=== PATIENT | female | born 1965 | race Caucasian/White ===

== ENCOUNTER 2020-02-11 09:00 | Emergency (ER) | payer BC, SELFPAY ==
[2020-02-11 09:31] VITALS: BP 137/85; PULSE 89; RESP 20; TEMP 36.8; O2SAT 95; BMI 28.3
--- NOTE | 2020-02-11 09:46 | HMH.EDUTC ---
[facility] [place] Clinical Impression: Exposure to COVID-19 virus Disposition: Home, Self-Care Condition on Discharge: Good Instructions: Preventing the Spread of Coronavirus Discharge Instructions Additional Instructions: Drink plenty of fluids. Take tylenol for pain or fever. Follow up with your regular doctor. GO TO THE ER FOR ANY WORSENING SYMPTOMS FOLLOW THE DIRECTIONS ON THE COVID-19 HAND OUT THAT WE GAVE YOU REGARDING SELF-ISOLATION UNTIL YOU KNOW YOUR COVID-19 RESULTS Referrals: Gilma Schmitz [Primary Care Provider] - Time of Disposition: 09:48 Medical Decision Making - Medical Records Medical records reviewed: No: I reviewed the patient's medical records. - Bridger Inquiry Pt receiving controlled substance: No Vital Signs: 02/11/20 09:31 02/11/20 10:00 Temperature 98.2 F 98.2 F Temperature Source Oral Oral Pulse Rate 89 Pulse Rate [Radial] 89 Respiratory Rate 20 20 Blood Pressure 137/85 Blood Pressure [Right Arm] 137/85 Blood Pressure Mean [Right Arm] 102 Blood Pressure Source Automatic Cuff Blood Pressure Source [Right Arm] Automatic Cuff Blood Pressure Position Sitting Blood Pressure Position [Right Arm] Sitting 02 Sat by Pulse Oximetry 95 Oxygen Delivery Method Room Air Room Air Orders (Tests/Meds): ORDERS Category Date Time Status Full Resp Panel w/COVID ([facility]) Routine Lab 02/11/20 09:20 [place] [facility] [place] - General Stated complaint: wants covid test Time Seen by Provider: 02/11/20 09:35 Mode of Arrival: Ambulatory Source of Information: Patient Limitations: No Limitations Description of Symptoms (Recalled from Triage Doc. by RN): covid exposure HEENT Symptoms (Recalled from RN notes): No Resp Symptoms (Recalled from RN notes): No Skin Symptoms (Recalled from RN notes): No MS Symptoms (Recalled from RN notes): No Functional Status (Recalled from RN notes): wnl - History of Present Illness Provider Complaint: Her was exposed to covid at his job around 1 week ago. Neither she nor her have had any symptoms. - Related Data Allergies Allergy/AdvReac Type Severity Reaction Status Date / Time codeine Allergy Verified 02/11/20 09:39 - Worker's Comp Is this a Worker's Comp case?: No [facility] History - Hepatitis A Screen Drug use history?: No High risk sexual behaviors?: No History of sexually transmitted infection?: No Currently employed?: No Childcare worker?: No Do you have indoor plumbing?: Yes Do you have electricity?: Yes Attestation statement:: This patient has been screened for Hepatitis A risk factors. I have reviewed the patient's past medical history: Yes - Social History Alcohol Intake: never Occupational Status: employed ROS Obtained: Yes All systems reviewed & no additional complaints - Constitutional Constitutional: Reports system reviewed and no additional complaints, except as docu - Eyes Eyes: Reports system reviewed and no additional complaints, except as docu - ENT Ears, Nose, Mouth, and Throat: Reports system reviewed and no additional complaints, except as docu - Cardiovascular Cardiovascular: Reports system reviewed and no additional complaints, except as docu - Respiratory Respiratory: Yes system reviewed and no additional complaints, except as docu - Gastrointestinal Gastrointestingal: Reports: system reviewed and no additional complaints, except as docu Physical Exam - General General appearance: alert, in no apparent distress - Head Head exam: atraumatic, normocephalic, normal inspection - Eye Eye exam: Present: normal appearance, PERRL, EOMI - ENT ENT exam: Present: normal exam, normal oropharynx, mucous membranes moist, TM's normal bilaterally, normal external ear exam - Neck Neck exam: Present: normal inspection, full ROM, trachea midline. Absent: meningismus, lymphadenopathy - Chest Chest inspection: Present: normal inspection, symmetric chest wall
[2020-02-11 10:00] VITALS: BP 137/85; PULSE 89; RESP 20; TEMP 36.8; O2SAT 95
[2020-02-12 14:09] LABS: Covid-19 Nasal PCR Sendout Lex NOT DETECTED
== END 2020-02-11 10:01 | disposition home or self-care (01) ==
PROVIDERS: Emergency Provider Nurse Practitioner Family; PCP Internal Medicine
DX: Z20.828 Contact with and (suspected) exposure to other viral communicable diseases (principal)
CPT/HCPCS: 99201; U0004

== ENCOUNTER 2023-09-27 05:32 | Emergency (ER) | payer BC, SELFPAY ==
[2023-09-27 05:34] VITALS: BP 152/86; PULSE 88; RESP 18; TEMP 36.8; O2SAT 98; BMI 31.1
--- NOTE | 2023-09-27 05:36 | ED_ITS ---
Discharge Plan Disposition Patient Disposition: Home, Self-Care Prescriptions Prescriptions: New ondansetron HCl 4 mg tablet 4 mg PO Q8H PRN (Reason: nausea and vomiting) 5 Days Qty: 30 0RF lidocaine 5 % adhesive patch,medicated 1 patch topical DAILY PRN (Reason: pain) Qty: 30 0RF Rx Instructions: leave on most painful area for up to 12 hrs cyclobenzaprine 5 mg tablet 10 mg PO TID PRN (Reason: muscle spasm) Qty: 30 0RF Clinical Impressions Clinical Impression: Low back pain Discharge ED Provider: Aayush Long General Adult HPI General Chief complaint: Back Pain/Injury Stated complaint: back pain, naussea Time Seen by Provider: 09/27/23 05:36 History of Present Illness HPI narrative: 58-year-old female with no reported past medical history presents with low back pain. She reports that she was doing more physical activity and then she had onset of back pain on Saturday. She has been doing hot and cold packs at home as well as Tylenol and ibuprofen but she has not had significant improvement. Pain sometimes radiates down the back of the legs. She has had this happen before and resolved with muscle relaxers. She reports that she was nauseous this morning secondary to pain and that is what prompted her to present to the ER today. She denies any numbness in the perineal area, denies any urinary or bowel incontinence or retention. Denies any burning with urination or history of kidney stones. No recent fever or illness. She denies focal weakness in the lower extremities. She reports no history of IV drug use, no history of cancer or bone disease. Related Data Previous Rx's Medication Instructions Recorded cyclobenzaprine 5 mg tablet 10 mg (2 x 5 mg) PO TID PRN muscle 09/27/23 spasm #30 tabs lidocaine 5 % topical patch 1 patch topical DAILY PRN pain #30 09/27/23 ea ondansetron HCl 4 mg tablet 4 mg PO Q8H PRN nausea and 09/27/23 vomiting 5 days #30 tabs Allergies Allergy/AdvReac Type Severity Reaction Status Date / Time codeine Allergy Verified 02/11/20 09:39 [facility] Disclaimer: The information contained in this section may have been updated after the patient was seen, as this information can be updated by other users. Social History Smoking Status: Never smoker alcohol intake: never current occupational status: employed Travel in the last 8 weeks: None ROS Obtained: Yes All systems reviewed & no additional complaints except as documented Physical Exam General General appearance: alert and in no apparent distress Head Head exam: atraumatic and normocephalic Eye Eye exam: Present normal appearance, PERRL and EOMI ENT ENT exam: Present normal oropharynx and normal external ear exam Neck Neck exam: Present normal inspection and full ROM Chest Chest inspection: Present normal inspection and symmetric chest wall rise; Absent tenderness Respiratory Respiratory exam: Present normal lung sounds bilaterally; Absent respiratory distress Cardiovascular Cardiovascular exam: Present regular rate and normal rhythm Abdominal Exam Abdominal exam: Present soft; Absent distention, tenderness or guarding Extremities Exam Extremities exam: Present normal inspection and full ROM; Absent edema or joint swelling Back Exam Back exam: Present normal inspection and tenderness (Paraspinal tenderness) Neurological Exam Neurological exam: Present alert, oriented X3 and other (Normal lower extremity motor and sensory exam, range of motion limited secondary to pain.); Absent motor sensory deficit Psychiatric Psychiatric exam: Present normal affect and normal mood Skin Skin exam: Present warm, dry and normal color Lymphatic Lymphatic Findings: no adenopathy Medical Decision Making Medical Records Medical records reviewed: Yes I reviewed the patient's medical records. Bridger Inquiry Pt receiving controlled substance: No Bridger was queried for this patient: No Vital Signs: 09/27/23 05:34 09/27/23 05:39 Temperature 98.2 F Temperature Source Oral Pulse Rate [Right Radial] 88 Respiratory Rate 18 Blood Pressure 152/86 H Blood Pressure [Right Arm] 152/86 H Blood Pressure Mean 92 Blood Pressure Mean [Right Arm] 108 Blood Pressure Source [Right Arm] Automatic Cuff Blood Pressure Position [Right Arm] Sitting 02 Sat by Pulse Oximetry 98 Oxygen Delivery Method Room Air Lab Data Lab results reviewed: Yes I reviewed the patient's lab results. Orders (Tests/Meds): ED MEDICATIONS Discontinued Medications Generic Name Dose Route Start Last Admin Trade Name Freq PRN Reason Stop Dose Admin Acetaminophen 1,000 mg 09/27/23 05:55 09/27/23 06:16 Acetaminophen 500mg Tab PO 09/27/23 05:56 1,000 mg ONCE ONE Administration Cyclobenzaprine HCl 10 mg 09/27/23 05:55 09/27/23 06:25 Cyclobenzaprine 10mg Tablet PO 09/27/23 05:56 10 mg ONCE ONE Administration Ketorolac Tromethamine 30 mg 09/27/23 05:55 09/27/23 06:17 Ketorolac 30mg/Ml Vial IM 09/27/23 05:56 30 mg ONCE ONE Administration Lidocaine 1 each 09/27/23 05:55 09/27/23 06:20 Lidocaine 5% Transdermal Patch TP 09/27/23 05:56 1 each ONCE ONE Administration Ondansetron HCl 4 mg 09/27/23 05:55 09/27/23 06:17 Ondansetron 4mg Odt SL 09/27/23 05:56 4 mg ONCE ONE Administration Medical Decision Narrative: 58-year-old female without significant past medical history presents with a few days of low back pain and woke up with nausea this morning.. History was obtained interactive discussion with patient, family. On arrival, patient is [afebrile, hemodynamically stable, satting appropriately, alert, oriented x4, GCS 15], moving all extremities spontaneously. Full physical exam performed and significant for mild paraspinal tenderness bilaterally, no lower extremity motor or neurologic deficits, no red flag history. Differential includes but is not limited to muscle spasm, disc impingement, cauda equina, transverse myelitis, spinal fracture Patient was given Tylenol, Toradol, Flexeril, lidocaine patch, Zofran for symptomatic management. CT imaging/MRI imaging was considered, but deemed unnecessary due to no significant concern for acute spinal/spinal cord pathology at this time. Given patient history, exam and workup, patient's presentation most likely represents muscle spasm/sciatica. Discussed with outpatient regarding presentation. Patient was discharged in stable condition with prescription including Flexeril, Zofran, lidocaine patches. Patient is given instructions regarding symptomatic care. Procedures Risk/Benefits of Procedure(s) Were Explained: Yes Critical Care Critical Care Time Critical Care Time: No
[2023-09-27 05:39] VITALS: BP 152/86
[2023-09-27] MEDS: ACETAMINOPHEN 500MG TAB 1000 MG PO (06:16)
[2023-09-27] MEDS: ONDANSETRON 4MG ODT 4 MG SL (06:17)
[2023-09-27] MEDS: KETOROLAC 30MG/ML VIAL 30 MG IM (06:17)
[2023-09-27] MEDS: LIDOCAINE 5% TRANSDERMAL PATCH 1 EACH TP (06:20)
[2023-09-27] MEDS: CYCLOBENZAPRINE 10MG TABLET 10 MG PO (06:25)
[2023-09-27 06:32] VITALS: BP 141/81; PULSE 77; RESP 21; TEMP 36.8; O2SAT 97
== END 2023-09-27 06:47 | disposition home or self-care (01) ==
PROVIDERS: Emergency Provider Emergency Medicine; PCP Nurse Practitioner Family
DX: M54.50 Low back pain, unspecified (principal); R11.0 Nausea
CPT/HCPCS: 96372; 99283